=== PATIENT | female | born 1950 | race Caucasian/White ===

== ENCOUNTER 2020-11-24 14:05 | Outpatient (REF) | payer OTHER, SELFPAY ==
[2020-11-24 16:29] LABS: Glucose Urine UA NEG (NEG); Leukocyte Esterase Urine 3+ (NEG); Nitrite Urine NEG (NEG); Specific Gravity - Urine <= 1.005 (1.005-1.025); Urine Blood TRACE (NEG); Urine Ketones NEG (NEG); Urine Protein NEG (NEG-TRACE)
[2020-11-24 16:30] LABS: Appearance Urine HAZY; Color Urine YELLOW
[2020-11-24 16:38] LABS: Estimated Average Glucose 103 mg/dL; Hemoglobin A1c % 5.2 %
[2020-11-24 17:04] LABS: Alanine Aminotransferase 16 U/L (0-31); Albumin Level 4.2 g/dL (3.5-5.0); Alkaline Phosphatase 90 U/L (39-117); Anion Gap 17 (12-20); Aspartate Amino Transferase 30 U/L (5-31); Bilirubin Total 0.4 mg/dL (0.0-1.0); Blood Urea Nitrogen 14 mg/dL (9-16); Calcium 9.2 mg/dL (8.4-10.2); Carbon Dioxide 22 mmol/L (22-29); Chloride 102 mmol/L (96-108); Cholesterol 236 mg/dL; Estimated Glomerular Filt Rate > 60; Glucose Fasting 90 mg/dL (60-99); HDL Cholesterol 90 mg/dL; LDL Cholesterol Calculated 123 mg/dl; Potassium 4.2 mmol/L (3.3-5.1); Sodium 137 mmol/L (135-145); Total Protein 7.1 g/dL (6.5-8.0); Triglycerides 116 mg/dL
[2020-11-24 17:17] LABS: Thyroid Stimulating Hormone 0.57 uIU/mL (0.32-4.0)
[2020-11-24 17:24] LABS: Bacteria Urine 2+ /LPF; Squamous Epithelial Cell Urine 1+ /LPF; WBC Urine 30-49 /HPF (0-4)
== END 2020-11-24 14:06 | disposition home or self-care (01) ==
LOC: HO.HMGCLDS 14:05
PROVIDERS: PCP Internal Medicine; Visit Provider Internal Medicine
DX: E78.5 Hyperlipidemia, unspecified (principal); I10 Essential (primary) hypertension
CPT/HCPCS: 36415; 80053; 80061; 81001; 83036; 84443

== ENCOUNTER 2021-05-30 07:08 | Outpatient (REF) | payer OTHER, SELFPAY ==
[2021-05-30 12:12] LABS: Appearance Urine CLEAR; Color Urine YELLOW; Glucose Urine UA NEG (NEG); Leukocyte Esterase Urine 2+ (NEG); Nitrite Urine NEG (NEG); Specific Gravity - Urine 1.015 (1.005-1.025); Urine Blood NEG (NEG); Urine Ketones NEG (NEG); Urine Protein NEG (NEG-TRACE)
[2021-05-30 12:35] LABS: Bacteria Urine 2+ /LPF; Mucus Urine 1+ /LPF; RBC Urine 0 /HPF (0); Squamous Epithelial Cell Urine 2+ /LPF
== END 2021-05-30 07:09 | disposition home or self-care (01) ==
LOC: HO.HMGCLDS 07:08
PROVIDERS: PCP Internal Medicine; Visit Provider Internal Medicine
DX: E78.5 Hyperlipidemia, unspecified (principal); I10 Essential (primary) hypertension
CPT/HCPCS: 81001

== ENCOUNTER 2021-07-24 06:59 | Outpatient (REF) | payer OTHER, SELFPAY ==
[2021-07-24 11:57] LABS: Alanine Aminotransferase 13 U/L (0-31); Albumin Level 4.1 g/dL (3.5-5.0); Alkaline Phosphatase 91 U/L (39-117); Anion Gap 12 (12-20); Aspartate Amino Transferase 22 U/L (5-31); Bilirubin Total 0.6 mg/dL (0.0-1.0); Blood Urea Nitrogen 10 mg/dL (9-16); Calcium 9.8 mg/dL (8.4-10.2); Carbon Dioxide 28 mmol/L (22-29); Chloride 101 mmol/L (96-108); Cholesterol 227 mg/dL; Estimated Glomerular Filt Rate > 60; Glucose Fasting 98 mg/dL (60-99); HDL Cholesterol 79 mg/dL; LDL Cholesterol Calculated 117 mg/dl; Potassium 4.4 mmol/L (3.3-5.1); Sodium 137 mmol/L (135-145); Total Protein 7.1 g/dL (6.5-8.0); Triglycerides 155 mg/dL
== END 2021-07-24 07:00 | disposition home or self-care (01) ==
LOC: HO.HMGCLDS 06:59
PROVIDERS: Visit Provider Internal Medicine
DX: E78.5 Hyperlipidemia, unspecified (principal); I10 Essential (primary) hypertension
CPT/HCPCS: 36415; 80053; 80061

== ENCOUNTER 2022-04-16 06:25 | Outpatient (REF) | payer OTHER, SELFPAY ==
[2022-04-16 12:32] LABS: Hematocrit 35.4 % (37.0-47.0); Hemoglobin 11.9 g/dl (12.0-16.0); Mean Corpuscular HGB Conc 33.6 g/dl (31.0-35.0); Mean Corpuscular Hemoglobin 34.4 pg (27.0-33.0); Mean Corpuscular Volume 102.3 fL (80.0-98.0); Mean Platelet Volume 10.1 fL (9.4-12.3); Platelet Count 173 X10*3/uL (160-400); Red Blood Count 3.46 X10*6/uL (4.20-5.50); Red Cell Distribution Width 14.3 % (11.0-16.0); White Blood Count 4.8 X10*3/uL (4.8-10.8)
[2022-04-16 12:38] LABS: Alanine Aminotransferase 19 U/L (0-31); Albumin Level 4.1 g/dL (3.5-5.0); Alkaline Phosphatase 98 U/L (39-117); Anion Gap 16 (12-20); Aspartate Amino Transferase 32 U/L (5-31); Bilirubin Total 0.5 mg/dL (0.0-1.0); Blood Urea Nitrogen 10 mg/dL (9-16); Calcium 9.4 mg/dL (8.4-10.2); Carbon Dioxide 25 mmol/L (22-29); Chloride 103 mmol/L (96-108); Cholesterol 249 mg/dL; Estimated Glomerular Filt Rate > 60; Glucose Fasting 91 mg/dL (60-99); HDL Cholesterol 115 mg/dL; LDL Cholesterol Calculated 111 mg/dl; Potassium 4.1 mmol/L (3.3-5.1); Sodium 140 mmol/L (135-145); Total Protein 6.9 g/dL (6.5-8.0); Triglycerides 115 mg/dL
== END 2022-04-16 06:26 | disposition home or self-care (01) ==
LOC: HO.HMGCLDS 06:25
PROVIDERS: PCP Internal Medicine; Visit Provider Internal Medicine
DX: E78.5 Hyperlipidemia, unspecified (principal); I10 Essential (primary) hypertension
CPT/HCPCS: 36415; 80053; 80061; 85027

== ENCOUNTER 2022-05-17 14:29 | Outpatient (REF) | payer OTHER, SELFPAY ==
[2022-05-17 16:51] LABS: Iron 87 mcg/dL (30-160); Percent Iron Saturation 21 % (15-50); Total Iron Binding Capacity 405 mcg/dL (228-428); Unsaturated Iron Binding 318 ug/dL
[2022-05-17 17:23] LABS: Folate 10.4 ng/mL (> or = 4.0); Vitamin B12 258 pg/mL (200-900)
== END 2022-05-17 14:30 | disposition home or self-care (01) ==
LOC: HO.HMGCLDS 14:29
PROVIDERS: PCP Internal Medicine; Visit Provider Internal Medicine
DX: D64.9 Anemia, unspecified (principal)
CPT/HCPCS: 36415; 82607; 82746; 83540

== ENCOUNTER 2023-01-02 06:11 | Outpatient (REF) | payer BC, SELFPAY ==
[2023-01-02 11:08] LABS: MANUAL DIFF FLAG NO
[2023-01-02 11:55] LABS: Basophils Absolute Auto 0.1 X10*3/uL (0.0-0.2); Basophils Percent Auto 1.2 % (0-2); Eosinophils Absolute Auto 0.2 X10*3/uL (0.0-0.4); Eosinophils Percent Auto 4.8 % (0-4); Hematocrit 36.3 % (37.0-47.0); Hemoglobin 12.5 g/dl (12.0-16.0); Imm Gran Abs Auto 0.01 X10*3/uL (0.00-0.03); Imm Gran Pct Auto 0.2 % (0.0-0.4); Lymphocytes Absolute Auto 2.2 X10*3/uL (1.2-4.9); Lymphocytes Percent Auto 43.8 % (20-40); Mean Corpuscular HGB Conc 34.4 g/dl (31.0-35.0); Mean Corpuscular Hemoglobin 33.9 pg (27.0-33.0); Mean Corpuscular Volume 98.4 fL (80.0-98.0); Mean Platelet Volume 9.9 fL (9.4-12.3); Monocytes Absolute Auto 0.5 X10*3/uL (0.1-1.2); Monocytes Percent Auto 10.1 % (2-11); Neutrophils Percent Auto 39.9 % (45-73); Platelet Count 243 X10*3/uL (160-400); Red Blood Count 3.69 X10*6/uL (4.20-5.50); Red Cell Distribution Width 12.5 % (11.0-16.0)
[2023-01-02 12:10] LABS: Alanine Aminotransferase 19 U/L (0-31); Albumin Level 4.1 g/dL (3.5-5.0); Alkaline Phosphatase 83 U/L (39-117); Anion Gap 12 (12-20); Aspartate Amino Transferase 23 U/L (5-31); Bilirubin Total 0.5 mg/dL (0.0-1.0); Blood Urea Nitrogen 9 mg/dL (9-16); Calcium 9.6 mg/dL (8.4-10.2); Carbon Dioxide 24 mmol/L (22-29); Chloride 101 mmol/L (96-108); Cholesterol 220 mg/dL; Estimated Glomerular Filt Rate > 60; Glucose Fasting 87 mg/dL (60-99); HDL Cholesterol 76 mg/dL; Iron 140 mcg/dL (30-160); LDL Cholesterol Calculated 122 mg/dl; Percent Iron Saturation 41 % (15-50); Potassium 4.4 mmol/L (3.3-5.1); Sodium 133 mmol/L (135-145); TSH reflex Free T4 1.62 uIU/mL (0.32-4.0); Total Iron Binding Capacity 340 mcg/dL (228-428); Total Protein 7.1 g/dL (6.5-8.0); Triglycerides 113 mg/dL; Unsaturated Iron Binding 200 ug/dL
[2023-01-02 12:20] LABS: Folate 5.2 ng/mL (> or = 4.0); Vitamin B12 211 pg/mL (200-900)
== END 2023-01-02 06:12 | disposition home or self-care (01) ==
LOC: HO.HMGCLDS 06:11
PROVIDERS: PCP Internal Medicine; Visit Provider Internal Medicine
DX: E78.5 Hyperlipidemia, unspecified (principal); I10 Essential (primary) hypertension; D64.9 Anemia, unspecified
CPT/HCPCS: 36415; 80053; 80061; 82607; 82746; 83540; 84443; 85025

== ENCOUNTER 2023-01-03 13:54 | Outpatient (AMB) | payer BC, SELFPAY ==
[2023-01-03 14:06] VITALS: BP 142/80; PULSE 108; O2SAT 98; BMI 27.9
--- NOTE | 2023-01-03 14:06 | MHC.PC.OV ---
Vital Signs 01/03/23 14:06 Height 5 ft 6 in Weight 173 lb BMI 27.9 BP 142/80 H Blood Pressure Location Lt brachial Position Sitting Pulse 108 H Pulse Source Pulse Oximeter Pulse Oximetry (%) 98 Oxygen Delivery Method Room Air Intake Visit Reasons: 6M Follow up Medication Intake Note: Pt is here today for 6 months follow up visit. Allergies No Known Allergies Allergy (Verified 01/03/23 14:07) Tobacco use date assessed: 01/03/23 Fall risk assessment: No Falls in past year Last assessed Fall Risk: 01/03/23 Dental Screening Dental Screen Date: 01/03/23 Did you have a dental visit in the last 12 months?: Yes Did you have a dental problem in the last 6 months where you did not have access to dental care?: No Was dental information given to patient?: Patient has dentist HPI 6M Follow up Medication HPI Details Patient presents for the follow-up on hypertension controlled on lisinopril. Patient has been monitoring her blood pressure at home with the readings at about 130/80. [facility] Medical History (Updated 01/03/23 @ 14:36 by Rebecca Mercado MD) Colonoscopy refused Hyperlipidemia Hypertension Mammogram normal Papanicolaou smear declined Screening for colon cancer Surgical History No pertinent past surgical history Family History (Updated 01/03/23 @ 14:08 by Idania Castañeda [facility]) Father Heart problem Mother Diabetes mellitus Son No problems noted. Social History Housing: House Alcohol intake: current Alcohol intake frequency: holidays/special occasions only Patient Tobacco Use Status: Never used Tobacco e-Cigarette/Vaping Use: Never Used Current occupational status: employed Cognitive needs: No Hearing needs: No Vision needs: Yes Questionnaire PHQ-9 Over the last 2 weeks, how often have you been bothered by any of the following problems? 1. Little interest or pleasure in doing things: several days 2. Feeling down, depressed, or hopeless: not at all 3. Trouble falling or staying asleep, or sleeping too much: not at all 4. Feeling tired or having little energy: not at all 5. Poor appetite or overeating: not at all 6. Feeling bad about yourself - or that you are a failure or have let yourself or your family down: several days 7. Trouble concentrating on things, such as reading the newspaper or watching television: not at all 8. Moving or speaking so slowly that other people could have noticed. Or the opposite - being so fidgety or restless that you have been moving around a lot more than usual: not at all 9. Thoughts that you would be better off or of hurting yourself in some way: not at all Total score: 2 Depression Screening Interpretation: Negative Source: Developed by Drs. Ruddy Knowles, Cecilia Gracia, Rafael Ta and colleagues, with an educational jaycob from [employer]. Thrive Questionnaire Date Thrive assessed: 01/03/23 I am a: Patient What is your living situation today?: I have a steady place to live Within the past 12 months, did the food you bought not last and you didn't have the money to get more?: Never true Within the past 12 months, did you worry whether your food would run out before you got money to buy more?: Never true Do you have trouble paying for medicines?: No Do you have trouble getting transportation to medical appointments?: No Do you have trouble paying your heating and electricity bill?: No Do you have trouble taking care of your child, family member or friend?: No Do you have trouble with day-to-day activities such as bathing, preparing meals, shopping, managing finances, etc.?: No Are you currently unemployed and looking for a job?: No Are you interested in more education?: No Please select the resources that you would like help with: None Currently or been in a relationship where the following occur: no concerns reported WILL-7 AMB Questionnaire WILL-7 Date WILL - 7 assessed: 01/03/23 Feeling nervous, anxious, or on edge: 0 = Not at all Not being able to stop or control worryin = Not at all Worrying too much about different things: 0 = Not at all Trouble relaxin = Not at all Being so restless that it is hard to sit still: 0 = Not at all Becoming easily annoyed or irritable: 0 = Not at all Feeling afraid as if something awful might happen: 0 = Not at all Total WILL-7 score (0-4 normal; 5-9 mild; 10-14 moderate; 15-21 severe): 0 Source: Developed by Drs. Ruddy Knowles, Cecilia Gracia, Rafael Ta and colleagues, with an educational jaycob from [employer]. Review of Systems Const All systems reviewed & are unremarkable except as noted in HPI and below Reports no additional complaints Eyes Reports no additional complaints ENT Reports no additional complaints Card Reports no additional complaints Resp Reports no additional complaints GI Reports no additional complaints Reports no additional complaints Physical exam (Primary Care) Vital Signs: Last Vital Signs Pulse 108 H 01/03/23 14:06 BP 142/80 H 01/03/23 14:06 Pulse Ox 98 01/03/23 14:06 Oxygen Delivery Method Room Air 01/03/23 14:06 BMI result Body Mass Index 27.9 Tobacco/Smoking Status: Tobacco use Status Tobacco use date assessed 01/03/23 01/03/23 14:10 Patient Tobacco Use Status Never used Tobacco 01/03/23 14:10 e-Cigarette/Vaping Use Never Used 01/03/23 14:10 PHQ-9: PHQ-9 Score PHQ-9: Total score 2 01/03/23 14:11 Depression Screening Interpretation: Negative Thrive Assessment: Date of Thrive Assessment Date Thrive assessed 01/03/23 01/03/23 14:11 Currently or been in a relationship where the following occur: no concerns reported Const General: no acute distress HENMT Head: Yes normal to inspection Eyes General: appearance normal, both eyes and all related structures Neck Neck: Yes supple Resp Effort & Inspection: normal respiratory effort Auscultation: clear to auscultation bilaterally Cardio Rhythm: regular rhythm Heart sounds: S1 normal heart sound present and S2 normal heart sound present GI Inspection: Yes normal to inspection Palpation (GI): Soft to palpation Percussion: Yes normal to percussion Auscultation: normal bowel sounds Assessment and Plan Assessment & Plan (1) Hypertension: Comment: White coat syndrome Code(s): I10 - Essential (primary) hypertension Plan: Continue lisinopril (2) Vitamin B 12 deficiency: Code(s): E53.8 - Deficiency of other specified B group vitamins Plan: Start B12 supplement (3) Anemia: Comment: Normal iron studies, borderline low vitamin B12 started supplement 01/08 Code(s): D64.9 - Anemia, unspecified Plan: Monitor CBC Medications: New cyanocobalamin (vitamin B-12) 500 mcg PO DAILY 90 tabs 1RF Refilled lisinopril 40 mg PO DAILY 90 tabs 3RF Coding Level of Care Code Est Pt Level 4 (45124) Diagnoses Hypertension I10 Vitamin B 12 deficiency E53.8 Anemia D64.9
== END 2023-01-03 14:36 | disposition home or self-care (01) ==
PROVIDERS: PCP Internal Medicine; Visit Provider Internal Medicine
DX: I10 Essential (primary) hypertension (principal); E53.8 Deficiency of other specified B group vitamins; D64.9 Anemia, unspecified
CPT/HCPCS: 99214

== ENCOUNTER 2023-08-29 13:45 | Outpatient (AMB) | payer BC, MEDICARE, SELFPAY ==
[2023-08-29 13:46] VITALS: BP 134/74; PULSE 96; O2SAT 99; BMI 26.0
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
== END 2023-08-29 14:28 | disposition home or self-care (01) ==
PROVIDERS: PCP Internal Medicine; Visit Provider Internal Medicine
DX: Z00.00 Encounter for general adult medical examination without abnormal findings (principal); I82.403 Acute embolism and thrombosis of unspecified deep veins of lower extremity, bilateral; I10 Essential (primary) hypertension; E53.8 Deficiency of other specified B group vitamins; D64.9 Anemia, unspecified
CPT/HCPCS: 99397

== ENCOUNTER 2023-08-29 14:31 | Outpatient (REF) | payer BC, MEDICARE, SELFPAY ==
[2023-08-29 16:16] LABS: MANUAL DIFF FLAG NO
[2023-08-29 16:30] LABS: Basophils Percent Auto 0.6 % (0-2); Eosinophils Absolute Auto 0.1 X10*3/uL (0.0-0.4); Eosinophils Percent Auto 1.6 % (0-4); Hematocrit 35.3 % (37.0-47.0); Hemoglobin 12.1 g/dl (12.0-16.0); Imm Gran Abs Auto 0.02 X10*3/uL (0.00-0.03); Imm Gran Pct Auto 0.3 % (0.0-0.4); Lymphocytes Absolute Auto 1.7 X10*3/uL (1.2-4.9); Lymphocytes Percent Auto 27.4 % (20-40); Mean Corpuscular HGB Conc 34.3 g/dl (31.0-35.0); Mean Corpuscular Hemoglobin 32.8 pg (27.0-33.0); Mean Corpuscular Volume 95.7 fL (80.0-98.0); Mean Platelet Volume 10.8 fL (9.4-12.3); Monocytes Absolute Auto 0.5 X10*3/uL (0.1-1.2); Neutrophils Absolute Auto 3.9 x10*3/uL (2.0-8.3); Neutrophils Percent Auto 62.1 % (45-73); Platelet Count 235 X10*3/uL (160-400); Red Blood Count 3.69 X10*6/uL (4.20-5.50); Red Cell Distribution Width 14.2 % (11.0-16.0); White Blood Count 6.2 X10*3/uL (4.8-10.8)
[2023-08-29 16:36] LABS: Alanine Aminotransferase 10 U/L (0-31); Albumin Level 4.5 g/dL (3.5-5.0); Alkaline Phosphatase 101 U/L (39-117); Anion Gap 14 (12-20); Aspartate Amino Transferase 15 U/L (5-31); Bilirubin Total 0.4 mg/dL (0.0-1.0); Blood Urea Nitrogen 14 mg/dL (9-16); Calcium 9.9 mg/dL (8.4-10.2); Carbon Dioxide 25 mmol/L (22-29); Chloride 99 mmol/L (96-108); Estimated Glomerular Filt Rate > 60; Glucose Random 114 mg/dL (60-115); Potassium 4.9 mmol/L (3.3-5.1); Sodium 133 mmol/L (135-145); Total Protein 7.7 g/dL (6.5-8.0)
[2023-08-29 16:51] LABS: TSH reflex Free T4 1.79 uIU/mL (0.32-4.0); Vitamin D 25-OH Total 38.7 ng/mL (>30)
[2023-08-29 17:00] LABS: Vitamin B12 708 pg/mL (200-900)
== END 2023-08-29 14:32 | disposition home or self-care (01) ==
LOC: HO.HMGCLDS 14:31
PROVIDERS: PCP Internal Medicine; Visit Provider Internal Medicine
DX: E53.8 Deficiency of other specified B group vitamins (principal); I82.403 Acute embolism and thrombosis of unspecified deep veins of lower extremity, bilateral; D64.9 Anemia, unspecified; I10 Essential (primary) hypertension
CPT/HCPCS: 36415; 80053; 82306; 82607; 84443; 85025

== ENCOUNTER 2023-11-26 13:08 | Outpatient (AMB) | payer BC, MEDICARE, SELFPAY ==
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
[2023-11-26 13:11] VITALS: BP 190/96; PULSE 130; O2SAT 97; BMI 27.0
== END 2023-11-26 18:03 | disposition home or self-care (01) ==
PROVIDERS: PCP Internal Medicine; Visit Provider Physician Assistant
DX: T22.312A Burn of third degree of left forearm, initial encounter (principal); T78.40XA Allergy, unspecified, initial encounter
CPT/HCPCS: 99215

== ENCOUNTER 2024-01-30 12:47 | Outpatient (AMB) | payer BC, MEDICARE, SELFPAY ==
--- NOTE | 2024-01-30 12:55 | MHC.PC.OV ---
Vital Signs 01/30/24 13:03 Height 5 ft 6 in Weight 170 lb BMI 27.4 BP 134/86 Blood Pressure Location Lt brachial Position Sitting Pulse 90 Pulse Source Pulse Oximeter Pulse Oximetry (%) 98 Oxygen Delivery Method Room Air Intake Visit Reasons: 4M F/U Intake Note: Pt is here today for 4 months follow up visit. Allergies Peanut (Legumes) Allergy (Severe, Verified 01/30/24 13:08) lip swelling trouble breathing Peanut Butter Allergy (Severe, Verified 01/30/24 13:06) swollen lips trouble breathing lisinopril Adverse Reaction (Intermediate, Verified 01/30/24 13:35) lip swelling Medication List - Last Reconciled 01/30/24 by Rebecca Mercado MD amlodipine 10 mg PO DAILY cyanocobalamin (vitamin B-12) 500 mcg PO DAILY Eliquis (apixaban) 5 mg PO BID NS epinephrine 1 mg IM DAILY lisinopril 40 mg PO DAILY yhlfhfopfafn-yong-cvdyg acid 18-400 mg-mcg (Certavite-Antioxidant) 1 tab PO DAILY thiamine HCl (vitamin B1) 100 mg PO DAILY Tobacco use date assessed: 01/30/24 Dental Screening Dental Screen Date: 08/29/23 HPI 4M F/U HPI Details Pt presents for f/u ER visit last month for lip swelling possible reaction to peanut butter. She was advised to stop taking lisinopril as it may cause the lip swelling. Patient denies anaphylactic shock or shortness for breath during the episode. The symptoms resolved after a dose of Benadryl. she has not been taking lisinopril since then. [facility] Medical History (Updated 11/26/23 @ 13:37 by Crystal Kennedy PA-C) Screening for colon cancer Papanicolaou smear declined Colonoscopy refused Mammogram normal Hyperlipidemia Hypertension Surgical History No pertinent past surgical history Family History Father Heart problem Mother Diabetes mellitus Son No problems noted. Social History Housing: House Alcohol intake: current Alcohol intake frequency: holidays/special occasions only Patient Tobacco Use Status: Never used Tobacco e-Cigarette/Vaping Use: Never Used service: No Current occupational status: employed Cognitive needs: No Hearing needs: No Vision needs: Yes Questionnaire Thrive Questionnaire Date Thrive assessed: 01/03/23 WILL-7 AMB Questionnaire WILL-7 Date WILL - 7 assessed: 01/03/23 Source: Developed by Drs. Ruddy Knowles, Cecilia Gracia, Rafael Ta and colleagues, with an educational jaycob from [employer]. Review of Systems Const All systems reviewed & are unremarkable except as noted in HPI and below ENT Reports no additional complaints Card Reports no additional complaints Resp Reports no additional complaints GI Reports no additional complaints Physical exam (Primary Care) Vital Signs: Last Vital Signs Pulse 90 01/30/24 13:03 BP 134/86 01/30/24 13:03 Pulse Ox 98 01/30/24 13:03 Oxygen Delivery Method Room Air 01/30/24 13:03 BMI result Body Mass Index 27.4 Tobacco/Smoking Status: Tobacco use Status Tobacco use date assessed 01/30/24 01/30/24 13:09 Patient Tobacco Use Status Never used Tobacco 01/30/24 13:09 e-Cigarette/Vaping Use Never Used 01/30/24 12:55 Thrive Assessment: Date of Thrive Assessment Date Thrive assessed 01/03/23 01/30/24 12:55 Const General: no acute distress Eyes General: appearance normal, both eyes and all related structures Resp Effort & Inspection: normal respiratory effort Auscultation: clear to auscultation bilaterally Cardio Rhythm: regular rhythm Heart sounds: S1 normal heart sound present and S2 normal heart sound present Assessment and Plan Assessment & Plan (1) Hypertension: Comment: White coat syndrome Code(s): I10 - Essential (primary) hypertension Plan: Continue amlodipine and at bisoprolol 5 mg follow-up in 2 months (2) Hyperlipidemia: Code(s): E78.5 - Hyperlipidemia, unspecified Plan: Continue low-cholesterol diet (3) Anemia: Comment: Normal iron studies, borderline low vitamin B12 started supplement 01/08 Code(s): D64.9 - Anemia, unspecified Plan: Continue vitamin B12 supplement check the level (4) Vitamin B 12 deficiency: Code(s): E53.8 - Deficiency of other specified B group vitamins Orders: Orders Comprehensive [place]. Panel Fast 2 Months D64.9 - Anemia, unspecified, E53.8 - Deficiency of other specified B group vitamins, E78.5 - Hyperlipidemia, unspecified, I10 - Essential (primary) hypertension Complete Blood Count Auto Diff 2 Months D64.9 - Anemia, unspecified, E53.8 - Deficiency of other specified B group vitamins, E78.5 - Hyperlipidemia, unspecified, I10 - Essential (primary) hypertension Lipid Panel 2 Months D64.9 - Anemia, unspecified, E53.8 - Deficiency of other specified B group vitamins, E78.5 - Hyperlipidemia, unspecified, I10 - Essential (primary) hypertension TSH reflex Free T4 2 Months D64.9 - Anemia, unspecified, E53.8 - Deficiency of other specified B group vitamins, E78.5 - Hyperlipidemia, unspecified, I10 - Essential (primary) hypertension Vitamin B12 2 Months D64.9 - Anemia, unspecified, E53.8 - Deficiency of other specified B group vitamins, E78.5 - Hyperlipidemia, unspecified, I10 - Essential (primary) hypertension Medications: New bisoprolol fumarate 5 mg PO DAILY 90 tabs 3RF Refilled amlodipine 10 mg PO DAILY 90 tabs 3RF Discontinued lisinopril Discontinued Reason: Doctor's Order 40 mg PO DAILY 90 tabs 3RF Coding Level of Care Code Est Pt Level 4 (27210) Diagnoses Hypertension I10 Hyperlipidemia E78.5 Anemia D64.9 Vitamin B 12 deficiency E53.8
[2024-01-30 13:03] VITALS: BP 134/86; PULSE 90; O2SAT 98; BMI 27.4
== END 2024-01-30 13:38 | disposition home or self-care (01) ==
PROVIDERS: PCP Internal Medicine; Visit Provider Internal Medicine
DX: I10 Essential (primary) hypertension (principal); E78.5 Hyperlipidemia, unspecified; D64.9 Anemia, unspecified; E53.8 Deficiency of other specified B group vitamins
CPT/HCPCS: 99214

== ENCOUNTER 2024-03-31 06:02 | Outpatient (REF) | payer BC, MEDICARE, SELFPAY ==
[2024-03-31 10:42] LABS: MANUAL DIFF FLAG NO
[2024-03-31 10:50] LABS: Basophils Absolute Auto 0.1 X10*3/uL (0.0-0.2); Basophils Percent Auto 1.1 % (0-2); Eosinophils Absolute Auto 0.2 X10*3/uL (0.0-0.4); Eosinophils Percent Auto 3.2 % (0-4); Hematocrit 39.9 % (37.0-47.0); Hemoglobin 13.8 g/dl (12.0-16.0); Imm Gran Abs Auto 0.01 X10*3/uL (0.00-0.03); Imm Gran Pct Auto 0.2 % (0.0-0.4); Lymphocytes Absolute Auto 1.9 X10*3/uL (1.2-4.9); Lymphocytes Percent Auto 29.6 % (20-40); Mean Corpuscular HGB Conc 34.6 g/dl (31.0-35.0); Mean Corpuscular Hemoglobin 36.3 pg (27.0-33.0); Monocytes Absolute Auto 0.6 X10*3/uL (0.1-1.2); Monocytes Percent Auto 9.9 % (2-11); Neutrophils Absolute Auto 3.5 x10*3/uL (2.0-8.3); Platelet Count 199 X10*3/uL (160-400); Red Cell Distribution Width 13.7 % (11.0-16.0); White Blood Count 6.3 X10*3/uL (4.8-10.8)
[2024-03-31 11:33] LABS: Alanine Aminotransferase 24 U/L (0-31); Albumin Level 4.3 g/dL (3.5-5.0); Alkaline Phosphatase 119 U/L (39-117); Anion Gap 14 (12-20); Aspartate Amino Transferase 38 U/L (5-31); Bilirubin Total 0.9 mg/dL (0.0-1.0); Blood Urea Nitrogen 10 mg/dL (9-16); Carbon Dioxide 26 mmol/L (22-29); Chloride 104 mmol/L (96-108); Cholesterol 200 mg/dL (<200); Estimated Glomerular Filt Rate > 60; Glucose Fasting 110 mg/dL (60-99); HDL Cholesterol 87 mg/dL (>40); LDL Cholesterol Calculated 95 mg/dL (<100); Potassium 4.1 mmol/L (3.3-5.1); Sodium 140 mmol/L (135-145); TSH reflex Free T4 2.58 uIU/mL (0.32-4.0); Total Protein 7.8 g/dL (6.5-8.0); Triglycerides 93 mg/dL (<150)
[2024-03-31 11:45] LABS: Vitamin B12 585 pg/mL (200-900)
== END 2024-03-31 06:03 | disposition home or self-care (01) ==
LOC: HO.HMGCLDS 06:02
PROVIDERS: PCP Internal Medicine; Visit Provider Internal Medicine
DX: E53.8 Deficiency of other specified B group vitamins (principal); D64.9 Anemia, unspecified; I10 Essential (primary) hypertension; E78.5 Hyperlipidemia, unspecified
CPT/HCPCS: 36415; 80053; 80061; 82607; 84443; 85025

== ENCOUNTER 2024-04-02 13:41 | Outpatient (AMB) | payer BC, MEDICARE, SELFPAY ==
[2024-04-02 13:41] VITALS: BP 136/74; PULSE 81; O2SAT 97; BMI 29.5
--- NOTE | 2024-04-02 13:41 | A.OFFPC_ITS ---
Vital Signs 04/02/24 13:41 Height 5 ft 6 in Weight 183 lb BMI 29.5 BP 136/74 Blood Pressure Location Lt brachial Position Sitting Pulse 81 Pulse Source Pulse Oximeter Pulse Oximetry (%) 97 Oxygen Delivery Method Room Air Intake Visit Reasons: 2m follow up Intake Note: Pt is here today for 2 months follow up visit on BP. Allergies Peanut and Related Legumes [Peanut (Legumes)] Allergy (Severe, Verified 04/02/24 13:42) lip swelling trouble breathing Peanut Butter Allergy (Severe, Verified 04/02/24 13:42) swollen lips trouble breathing lisinopril Adverse Reaction (Intermediate, Verified 04/02/24 13:42) lip swelling Medication List - Last Reconciled 04/02/24 by Rebecca Mercado MD amlodipine 10 mg PO DAILY bisoprolol fumarate 5 mg PO DAILY cyanocobalamin (vitamin B-12) 500 mcg PO DAILY Eliquis (apixaban) 5 mg PO BID NS epinephrine 1 mg IM DAILY alxiiuzzwbus-ydqe-jqzip acid 18-400 mg-mcg (Certavite-Antioxidant) 1 tab PO DAILY thiamine HCl (vitamin B1) 100 mg PO DAILY Tobacco use date assessed: 01/30/24 Dental Screening Dental Screen Date: 08/29/23 HPI 2m follow up HPI Details Pt presents for HTN, PFSH Medical History Screening for colon cancer Papanicolaou smear declined Colonoscopy refused Mammogram normal Hyperlipidemia Hypertension Surgical History No pertinent past surgical history Family History Father Heart problem Mother Diabetes mellitus Son No problems noted. Social History Housing: House Alcohol intake: current Alcohol intake frequency: holidays/special occasions only Patient Tobacco Use Status: Never used Tobacco e-Cigarette/Vaping Use: Never Used service: No Current occupational status: employed Cognitive needs: No Hearing needs: No Vision needs: Yes Questionnaire Thrive Questionnaire Date Thrive assessed: 01/03/23 WILL-7 AMB Questionnaire WILL-7 Date WILL - 7 assessed: 01/03/23 Source: Developed by Drs. Ruddy Knowles, Cecilia Gracia, Rafael Ta and colleagues, with an educational jaycob from [employer]. Physical exam (Primary Care) Vital Signs: Last Vital Signs Pulse 81 04/02/24 13:41 BP 136/74 04/02/24 13:41 Pulse Ox 97 04/02/24 13:41 Oxygen Delivery Method Room Air 04/02/24 13:41 BMI result Body Mass Index 29.5 Tobacco/Smoking Status: Tobacco use Status Tobacco use date assessed 01/30/24 04/02/24 13:41 Patient Tobacco Use Status Never used Tobacco 04/02/24 13:41 e-Cigarette/Vaping Use Never Used 04/02/24 13:41 Thrive Assessment: Date of Thrive Assessment Date Thrive assessed 01/03/23 04/02/24 13:41 Const General: no acute distress HENMT Head: Yes normal to inspection Eyes General: appearance normal, both eyes and all related structures Resp Effort & Inspection: normal respiratory effort Auscultation: clear to auscultation bilaterally Cardio Rhythm: regular rhythm Heart sounds: S1 normal heart sound present and S2 normal heart sound present GI Inspection: Yes normal to inspection Coding Level of Care Code Est Pt Level 4 (91991) Complex EM visit Add On G2211 Diagnoses DVT, bilateral lower limbs I82.403 Hyperlipidemia E78.5 Hypertension I10 EtOH dependence F10.20 Assessment & Plan Assessment & Plan (1) DVT, bilateral lower limbs: Comment: unprovoked 05/10, on lifetime anticoagulation Code(s): I82.403 - Acute embolism and thrombosis of unspecified deep veins of lower extremity, bilateral Category: Medical Plan: Continue Eliquis (2) Hyperlipidemia: Code(s): E78.5 - Hyperlipidemia, unspecified Category: Medical Plan: Continue low-cholesterol diet (3) Hypertension: Comment: White coat syndrome Code(s): I10 - Essential (primary) hypertension Category: Medical Plan: Continue current medications (4) EtOH dependence: Comment: sober since 05/2023 Code(s): F10.20 - Alcohol dependence, uncomplicated Category: Medical Plan: Abstaining from alcohol discussed with the patient, return in 6 months Orders: Orders Complete Blood Count Auto Diff 6 Months D64.9 - Anemia, unspecified, E53.8 - Deficiency of other specified B group vitamins, E78.5 - Hyperlipidemia, unspecified, F10.20 - Alcohol dependence, uncomplicated, I10 - Essential (primary) hypertension, I82.403 - Acute embolism and thrombosis of unspecified deep veins of lower extremity, bilateral Lipid Panel 6 Months D64.9 - Anemia, unspecified, E53.8 - Deficiency of other specified B group vitamins, E78.5 - Hyperlipidemia, unspecified, F10.20 - Alcohol dependence, uncomplicated, I10 - Essential (primary) hypertension, I82.403 - Acute embolism and thrombosis of unspecified deep veins of lower extremity, bilateral Vitamin B12 and Folate 6 Months D64.9 - Anemia, unspecified, E53.8 - Deficiency of other specified B group vitamins, E78.5 - Hyperlipidemia, unspecified, F10.20 - Alcohol dependence, uncomplicated, I10 - Essential (primary) hypertension, I82.403 - Acute embolism and thrombosis of unspecified deep veins of lower extremity, bilateral Comprehensive [place]. Panel Fast 6 Months D64.9 - Anemia, unspecified, E53.8 - Deficiency of other specified B group vitamins, E78.5 - Hyperlipidemia, unspecified, F10.20 - Alcohol dependence, uncomplicated, I10 - Essential (primary) hypertension, I82.403 - Acute embolism and thrombosis of unspecified deep veins of lower extremity, bilateral Hemoglobin A1c 6 Months D64.9 - Anemia, unspecified, E53.8 - Deficiency of other specified B group vitamins, E78.5 - Hyperlipidemia, unspecified, F10.20 - Alcohol dependence, uncomplicated, I10 - Essential (primary) hypertension, I82.403 - Acute embolism and thrombosis of unspecified deep veins of lower extremity, bilateral TSH reflex Free T4 6 Months D64.9 - Anemia, unspecified, E53.8 - Deficiency of other specified B group vitamins, E78.5 - Hyperlipidemia, unspecified, F10.20 - Alcohol dependence, uncomplicated, I10 - Essential (primary) hypertension, I82.403 - Acute embolism and thrombosis of unspecified deep veins of lower extremity, bilateral Vitamin D 25-OH Total 6 Months D64.9 - Anemia, unspecified, E53.8 - Deficiency of other specified B group vitamins, E78.5 - Hyperlipidemia, unspecified, F10.20 - Alcohol dependence, uncomplicated, I10 - Essential (primary) hypertension, I82.403 - Acute embolism and thrombosis of unspecified deep veins of lower extremity, bilateral Medications: New folic acid 0.4 mg PO DAILY 90 tabs 3RF Refilled amlodipine 10 mg PO DAILY 90 tabs 3RF Eliquis (apixaban) 5 mg PO BID 180 tabs 3RF NS bisoprolol fumarate 5 mg PO DAILY 90 tabs 3RF cyanocobalamin (vitamin B-12) 500 mcg PO DAILY 90 tabs 3RF thiamine HCl (vitamin B1) 100 mg PO DAILY 90 tabs 3RF
== END 2024-04-02 14:15 | disposition home or self-care (01) ==
PROVIDERS: PCP Internal Medicine; Visit Provider Internal Medicine
DX: I82.403 Acute embolism and thrombosis of unspecified deep veins of lower extremity, bilateral (principal); E78.5 Hyperlipidemia, unspecified; I10 Essential (primary) hypertension; F10.20 Alcohol dependence, uncomplicated

== ENCOUNTER 2024-10-20 06:03 | Outpatient (REF) | payer MEDICARE, SELFPAY ==
--- OUTSIDE RECORDS SUMMARY | 2024-10-20 06:06 | XMS_ITS | Clinical Summary ---
Author Organization [facility] ity Address [address] [place] [address] Care Team Providers Care Educational Aid Name Role Phone Unavailable Primary Care Provider Unavailabl e Social History Tobacco Use Types Packs/Day Years Used Date Smoking Tobacco: Never Assessed Comments Unknown Sex and Gender Information Value Date Recorded Sex Assigned at Not on file Legal Sex Female 9:14 PM EST Gender Identity Not on file Sexual Orientation Not on file Plan of Treatment Health Maintenance Due Date Last Done Comments Breast Cancer Screening 1950 DTaP,Tdap,and Td Vaccines (1 - Tdap) 11/08/1971 Pneumococcal Vaccine: 50+ Ye ars (1 of 1 - PCV) 2002 Zoster Vaccines (1 of 2) 2002 Colorectal Cancer Screening: Colonoscopy 06/13/2023 Depression Screening 06/13/2023 Falls Risk Assessment 06/13/2023 Hepatitis C Screening 06/13/2023 Osteoporosis Screening (Bone Density Screening) 06/13/2023 Social Influencers of Health Screening 06/13/2023 COVID-19 Vaccine ( - 2023-2 5 season) 2024 Influenza Vaccine (Season Ended) 2025 RSV Immunization Adult Patie nts (1 - 1-dose 75+ series) 11/08/2027 HIB Vaccines Aged Out No longer eligi ble based on patient's age to complete this topic HPV Vaccines Aged Out No longer eligi ble based on patient's age to complete this topic Hepatitis A Vaccines Aged Out No long er eligible based on patient's age to complete this topic Hepatitis B Vaccines Aged Out No long er eligible based on patient's age to complete this topic IPV Vaccines Aged Out No longer eligi ble based on patient's age to complete this topic MMR Vaccines Aged Out No longer eligi ble based on patient's age to complete this topic Meningococcal ACWY Vaccine Aged Out N o longer eligible based on patient's age to complete this topic Meningococcal B Vaccine Aged Out No l onger eligible based on patient's age to complete this topic RSV Immunization Patients Un marce 20 months Aged Out No longer eligible b ased on patient's age to complete this topic Varicella Vaccines Aged Out No longer eligible based on patient's age to complete this topic
[2024-10-20 10:04] LABS: MANUAL DIFF FLAG NO
[2024-10-20 10:17] LABS: Basophils Percent Auto 0.7 % (0-2); Eosinophils Absolute Auto 0.2 X10*3/uL (0.0-0.4); Eosinophils Percent Auto 3.4 % (0-4); Hematocrit 39.1 % (37.0-47.0); Hemoglobin 13.1 g/dl (12.0-16.0); Imm Gran Abs Auto 0.01 X10*3/uL (0.00-0.03); Imm Gran Pct Auto 0.2 % (0.0-0.4); Lymphocytes Absolute Auto 2.1 X10*3/uL (1.2-4.9); Lymphocytes Percent Auto 38.5 % (20-40); Mean Corpuscular HGB Conc 33.5 g/dl (31.0-35.0); Mean Corpuscular Hemoglobin 32.9 pg (27.0-33.0); Mean Corpuscular Volume 98.2 fL (80.0-98.0); Mean Platelet Volume 11.1 fL (9.4-12.3); Monocytes Absolute Auto 0.6 X10*3/uL (0.1-1.2); Monocytes Percent Auto 10.7 % (2-11); Neutrophils Absolute Auto 2.5 x10*3/uL (2.0-8.3); Neutrophils Percent Auto 46.5 % (45-73); Platelet Count 185 X10*3/uL (160-400); Red Blood Count 3.98 X10*6/uL (4.20-5.50); Red Cell Distribution Width 12.5 % (11.0-16.0); White Blood Count 5.4 X10*3/uL (4.8-10.8)
[2024-10-20 10:39] LABS: Estimated Average Glucose 114 mg/dL; Hemoglobin A1c % 5.6 % (<6.0); Total Hemoglobin (HGBA1C) 3501.9478 umol/L
[2024-10-20 11:36] LABS: Vitamin B12 596 pg/mL (200-900)
[2024-10-20 14:52] LABS: Vitamin D 25-OH Total 46.9 ng/mL (>30)
[2024-10-20 14:54] LABS: Anion Gap 11 (12-20)
[2024-10-20 14:59] LABS: Alanine Aminotransferase 18 U/L (0-31); Albumin Level 4.3 g/dL (3.5-5.0); Alkaline Phosphatase 87 U/L (39-117); Aspartate Amino Transferase 28 U/L (5-31); Bilirubin Total 0.8 mg/dL (0.0-1.0); Blood Urea Nitrogen 16 mg/dL (9-16); Calcium 9.8 mg/dL (8.4-10.2); Carbon Dioxide 27 mmol/L (22-29); Chloride 106 mmol/L (96-108); Cholesterol 231 mg/dL (<200); Estimated Glomerular Filt Rate > 60; Glucose Fasting 100 mg/dL (60-99); HDL Cholesterol 66 mg/dL (>40); LDL Cholesterol Calculated 138 mg/dL (<100); Sodium 140 mmol/L (135-145); Total Protein 7.2 g/dL (6.5-8.0); Triglycerides 139 mg/dL (<150)
== END 2024-10-20 06:04 | disposition home or self-care (01) ==
LOC: HO.HMGCLDS 06:03
PROVIDERS: PCP Internal Medicine; Visit Provider Internal Medicine
DX: D64.9 Anemia, unspecified (principal); F10.20 Alcohol dependence, uncomplicated; I82.403 Acute embolism and thrombosis of unspecified deep veins of lower extremity, bilateral; E78.5 Hyperlipidemia, unspecified; E53.8 Deficiency of other specified B group vitamins; I10 Essential (primary) hypertension; Z13.1 Encounter for screening for diabetes mellitus
CPT/HCPCS: 36415; 80053; 80061; 82306; 82607; 82746; 83036; 84443; 85025

== ENCOUNTER 2024-10-22 13:01 | Outpatient (AMB) | payer BC, MEDICARE, SELFPAY ==
[2024-10-22 13:03] VITALS: BP 128/78; PULSE 78; RESP 20; TEMP 36.8; O2SAT 98; BMI 29.0
--- NOTE | 2024-10-22 13:03 | MHC.PC.OV ---
Vital Signs 10/22/24 13:03 Height 5 ft 6 in Weight 180 lb BMI 29.0 BP 128/78 Blood Pressure Location Lt brachial Position Sitting Respiration 20 Pulse 78 Pulse Source Pulse Oximeter Temp 98.2 F Temp Source Oral Pulse Oximetry (%) 98 Oxygen Delivery Method Room Air Intake Visit Reasons: 6 months f/up Intake Note: Pt is here today for 6 months follow up visit. Allergies Peanut and Related Legumes [Peanut (Legumes)] Allergy (Severe, Verified 10/22/24 13:05) lip swelling trouble breathing Peanut Butter Allergy (Severe, Verified 10/22/24 13:05) swollen lips trouble breathing lisinopril Adverse Reaction (Intermediate, Verified 10/22/24 13:05) lip swelling Medication List - Last Reconciled 10/22/24 by Rebecca Mercado MD amlodipine 10 mg PO DAILY bisoprolol fumarate 5 mg PO DAILY cyanocobalamin (vitamin B-12) 500 mcg PO DAILY Eliquis (apixaban) 5 mg PO BID NS epinephrine 1 mg IM DAILY folic acid 0.4 mg PO DAILY nibjyownzllc-ewiv-emndy acid 18-400 mg-mcg (Certavite-Antioxidant) 1 tab PO DAILY thiamine HCl (vitamin B1) 100 mg PO DAILY Tobacco use date assessed: 10/22/24 Fall risk assessment: No Falls in past year Last assessed Fall Risk: 10/22/24 Dental Screening Dental Screen Date: 10/22/24 Did you have a dental visit in the last 12 months?: Yes Did you have a dental problem in the last 6 months where you did not have access to dental care?: No Was dental information given to patient?: Patient has dentist HPI 6 months f/up HPI Details Patient presents for the follow-up of hypertension controlled on current medications. She changed her insurance and can not afford to pay 800 dollars a month for Eliquis. She has been taking it once a day and has 1 month supply left. [facility] Medical History EtOH dependence Burn of left arm Screening for colon cancer Papanicolaou smear declined Colonoscopy refused Mammogram normal Hyperlipidemia Hypertension Surgical History No pertinent past surgical history Family History Father Heart problem Mother Diabetes mellitus Son No problems noted. Social History Housing: House Alcohol intake: current Alcohol intake frequency: holidays/special occasions only Patient Tobacco Use Status: Never used Tobacco e-Cigarette/Vaping Use: Never Used service: No Current occupational status: employed Cognitive needs: No Hearing needs: No Vision needs: Yes Questionnaire PHQ-9 Over the last 2 weeks, how often have you been bothered by any of the following problems? 1. Little interest or pleasure in doing things: not at all 2. Feeling down, depressed, or hopeless: not at all 3. Trouble falling or staying asleep, or sleeping too much: not at all 4. Feeling tired or having little energy: several days 5. Poor appetite or overeating: not at all 6. Feeling bad about yourself - or that you are a failure or have let yourself or your family down: not at all 7. Trouble concentrating on things, such as reading the newspaper or watching television: not at all 8. Moving or speaking so slowly that other people could have noticed. Or the opposite - being so fidgety or restless that you have been moving around a lot more than usual: not at all 9. Thoughts that you would be better off or of hurting yourself in some way: not at all Total score: 1 Depression Screening Interpretation: Negative Depression Screening Done: Yes 73100 - PHQ-9 Billing: Yes Source: Developed by Drs. Ruddy Knowles, Cecilia Gracia, Rafael Ta and colleagues, with an educational jaycob from [employer]. Thrive Questionnaire Date Thrive assessed: 10/22/24 I am a: Patient What is your living situation today?: I have a steady place to live Within the past 12 months, did the food you bought not last and you didn't have the money to get more?: Never true Within the past 12 months, did you worry whether your food would run out before you got money to buy more?: Never true Do you have trouble paying for medicines?: No Do you have trouble getting transportation to medical appointments?: No Do you have trouble paying your heating and electricity bill?: No Do you have trouble taking care of your child, family member or friend?: No Do you have trouble with day-to-day activities such as bathing, preparing meals, shopping, managing finances, etc.?: No Are you currently unemployed and looking for a job?: No Are you interested in more education?: No THRIVE Score: 0 AUDIT C Alcohol Use Questionnaire (AUDIT-C) 1. How often do you have a drink containing alcohol?: Never 3. How often do you have six or more drinks on one occasion?: Never Total Score: 0 WILL-7 AMB Questionnaire WILL-7 Date WILL - 7 assessed: 10/22/24 Feeling nervous, anxious, or on edge: 0 = Not at all Not being able to stop or control worryin = Not at all Worrying too much about different things: 0 = Not at all Trouble relaxin = Not at all Being so restless that it is hard to sit still: 0 = Not at all Becoming easily annoyed or irritable: 0 = Not at all Feeling afraid as if something awful might happen: 0 = Not at all Total WILL-7 score (0-4 normal; 5-9 mild; 10-14 moderate; 15-21 severe): 0 Source: Developed by Drs. Ruddy Knowles, Cecilia Gracia, Rafael Ta and colleagues, with an educational jaycob from [employer]. WILL-7 Assessment Billing WILL-7 Assessment Tool: WILL-7 Assessment 68668 Review of Systems Const All systems reviewed & are unremarkable except as noted in HPI and below Eyes Reports no additional complaints ENT Reports no additional complaints Card Reports no additional complaints Resp Reports no additional complaints GI Reports no additional complaints Reports no additional complaints Physical exam (Primary Care) Vital Signs: Last Vital Signs Temp 98.2 F 10/22/24 13:03 Pulse 78 10/22/24 13:03 Resp 20 10/22/24 13:03 BP 128/78 10/22/24 13:03 Pulse Ox 98 10/22/24 13:03 Oxygen Delivery Method Room Air 10/22/24 13:03 BMI result Body Mass Index 29.0 Tobacco/Smoking Status: Tobacco use Status Tobacco use date assessed 10/22/24 10/22/24 13:08 Patient Tobacco Use Status Never used Tobacco 10/22/24 13:08 e-Cigarette/Vaping Use Never Used 10/22/24 13:04 PHQ-9: PHQ-9 Score PHQ-9: Total score 1 10/22/24 13:11 Depression Screening Interpretation: Negative Thrive Assessment: Date of Thrive Assessment Date Thrive assessed 10/22/24 10/22/24 13:11 Const General: no acute distress HENMT Head: Yes normal to inspection Ears: hearing grossly normal bilaterally Eyes General: appearance normal, both eyes and all related structures Neck Neck: Yes supple Resp Effort & Inspection: normal respiratory effort Auscultation: clear to auscultation bilaterally Cardio Rhythm: regular rhythm Heart sounds: S1 normal heart sound present and S2 normal heart sound present GI Inspection: Yes normal to inspection Palpation (GI): Soft to palpation Percussion: Yes normal to percussion Auscultation: normal bowel sounds Coding Level of Care Code Est Pt Level 4 (97404) Diagnoses DVT, bilateral lower limbs I82.403 Hypertension I10 Hyperlipidemia E78.5 Additional Codes WILL-7 Assessment Billing - WILL-7 Assessment Tool: WILL-7 Assessment 37315 ([id number]) PHQ-9 - 81661 - PHQ-9 Billing: Yes ([id number]) Assessment & Plan Assessment & Plan (1) DVT, bilateral lower limbs: Comment: unprovoked 05/10, on lifetime anticoagulation Code(s): I82.403 - Acute embolism and thrombosis of unspecified deep veins of lower extremity, bilateral Category: Medical Plan: Patient will finish Eliquis and return for blood work to rule out hypercoagulable state. For chronic lower extremity venous insufficiency patient was advised to wear compression stockings (2) Hypertension: Comment: White coat syndrome Code(s): I10 - Essential (primary) hypertension Category: Medical Plan: Continue current medications (3) Hyperlipidemia: Code(s): E78.5 - Hyperlipidemia, unspecified Category: Medical Plan: Continue low-cholesterol diet Orders: Orders Factor V Leiden 2 Months I82.403 - Acute embolism and thrombosis of unspecified deep veins of lower extremity, bilateral Lupus Anticoagulant Panel 2 Months I82.403 - Acute embolism and thrombosis of unspecified deep veins of lower extremity, bilateral Complete Blood Count Auto Diff 6 Months E78.5 - Hyperlipidemia, unspecified, I10 - Essential (primary) hypertension, R73.9 - Hyperglycemia, unspecified, Z00.00 - Encounter for general adult medical examination without abnormal findings Comprehensive [place]. Panel Fast 6 Months E78.5 - Hyperlipidemia, unspecified, I10 - Essential (primary) hypertension, R73.9 - Hyperglycemia, unspecified, Z00.00 - Encounter for general adult medical examination without abnormal findings Lipid Panel 6 Months E78.5 - Hyperlipidemia, unspecified, I10 - Essential (primary) hypertension, R73.9 - Hyperglycemia, unspecified, Z00.00 - Encounter for general adult medical examination without abnormal findings Hemoglobin A1c 6 Months E78.5 - Hyperlipidemia, unspecified, I10 - Essential (primary) hypertension, R73.9 - Hyperglycemia, unspecified, Z00.00 - Encounter for general adult medical examination without abnormal findings Cardiolipin Antibodies 2 Months I82.403 - Acute embolism and thrombosis of unspecified deep veins of lower extremity, bilateral Prothrombin Time INR 2 Months I82.403 - Acute embolism and thrombosis of unspecified deep veins of lower extremity, bilateral Partial Thromboplastin Time 2 Months I82.403 - Acute embolism and thrombosis of unspecified deep veins of lower extremity, bilateral TSH reflex Free T4 6 Months E78.5 - Hyperlipidemia, unspecified, I10 - Essential (primary) hypertension, R73.9 - Hyperglycemia, unspecified, Z00.00 - Encounter for general adult medical examination without abnormal findings Medications: Refilled bisoprolol fumarate 5 mg PO DAILY 90 tabs 3RF folic acid 0.4 mg PO DAILY 90 tabs 3RF amlodipine 10 mg PO DAILY 90 tabs 3RF thiamine HCl (vitamin B1) 100 mg PO DAILY 90 tabs 3RF Discontinued Eliquis (apixaban) Discontinued Reason: Doctor's Order 5 mg PO BID 180 tabs 3RF NS
--- OUTSIDE RECORDS SUMMARY | 2024-10-22 13:03 | XMS_ITS | Clinical Summary ---
Author Organization [facility] ity Address [address] [place] [address] Care Team Providers Care Care Technician Name Role Phone Unavailable Primary Care Provider [...]
== END 2024-10-22 13:25 | disposition home or self-care (01) ==
LOC: HO.HMCC 13:02
PROVIDERS: PCP Internal Medicine; Visit Provider Internal Medicine
DX: I82.403 Acute embolism and thrombosis of unspecified deep veins of lower extremity, bilateral (principal); I10 Essential (primary) hypertension; E78.5 Hyperlipidemia, unspecified

== ENCOUNTER → 2024-10-22 13:01 | Outpatient (BNVA) | payer MEDICARE, SELFPAY | PROVIDERS: PCP Internal Medicine; Visit Provider Internal Medicine | DX: I10 Essential (primary) hypertension (principal); I82.403 Acute embolism and thrombosis of unspecified deep veins of lower extremity, bilateral; E78.5 Hyperlipidemia, unspecified; R73.9 Hyperglycemia, unspecified; Z79.899 Other long term (current) drug therapy | CPT/HCPCS: 96127 ==